=== PATIENT | female | born 1995 | race Caucasian/White ===

== ENCOUNTER 2024-03-10 07:40 | Outpatient (REF) | payer BC, SELFPAY ==
--- NOTE | ~2024-03-10 | US_ITS ---
EXAMINATION: US RENAL WITH DOPPLER CLINICAL INFORMATION: Epigastric pain. MALS. COMPARISON: None available. TECHNIQUE: Ultrasound along with color Doppler imaging and spectral analysis was performed of the abdominal aorta and mesenteric arteries.. FINDINGS: Submitted for interpretation on March 18, 2024. Abdominal aorta: Normal patency. Triphasic waveforms. Peak systolic velocity 118 cm/s and at the level of superior mesenteric artery. Superior mesenteric artery: Peak systolic velocity at the proximal, mid and distal segments as follow up: 210 cm/s, 249 cm/s and 191 cm/s. Mesenteric aortic ratio: 2.3. Celiac trunk: Peak systolic velocities as follow up: Inspiration supine: 268 cm/s. Inspiration erect: 273 cm/s. Expiration supine: 299 cm/s. Expiration erect: 267 cm/s. Inferior mesenteric artery is patent with a peak systolic velocity 89 cm/s. Splenic artery is patent with a peak systolic velocity: 335 cm/s. Hepatic artery is patent with a peak systolic velocity: 159 cm/s. US/US SMA IMPRESSION: No stenosis, superior mesenteric artery. 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 Electronically signed by: Ravi Andujar MD 03/18/2024 03:32 PM EST
--- OUTSIDE RECORDS SUMMARY | 2024-03-16 16:19 | XMS_ITS ---
Author Name [facility] Organization Unknown Results Test Name/Text Value Interpretation Date Range Source Zonisamide SerPl-mCnc 18.2mcg/mL Normal [id number] 10 - 40 [facility] Calcium SerPl-mCnc 8.3mg/dL Below low normal [id number] 8 .7 - 10.5 [facility] BUN SerPl-mCnc 3mg/dL Below low normal [id number] 8 - 2 1 [facility] Creat SerPl-mCnc 0.7mg/dL Normal [id number] 0.4 - 1.1 [facility] GFR/BSA.pred SerPlBld HCY-WWQ-TsMEtr 90 Normal [id number] 59 - [facility] Chloride SerPl-sCnc 111mmol/L Above high normal [id number] 98 - 107 [facility] BUN/Creat SerPl 4Ratio Below low normal [id number] 10 - 25 [facility] CO2 SerPl-sCnc 23mmol/L Normal [id number] 22 - 33 HH CCT Anion Gap Bld-sCnc 6 Normal [id number] 4 - 16 [facility] Potassium SerPl-sCnc 3.7mmol/L Normal [id number] 3.4 - 5.3 [facility] Glucose SerPl-mCnc 89mg/dL Normal [id number] 65 - 99 [facility] Sodium SerPl-sCnc 140mmol/L Normal [id number] 136 - 145 [facility] Neutrophils num Bld Auto 1.83Thou/uL Below low normal [id number] 2 - 7.5 [facility] Monocytes num Bld Auto 0.58Thou/uL Normal [id number] 0.2 - 1.5 [facility] Eosinophil num Bld Auto 0.12Thou/uL Normal [id number] 0 - 0.7 [facility] WBC num Bld Auto 5.5Thou/uL Normal [id number] 4 - 11 [facility] MCHC RBC Auto-mCnc 33.1g/dL Normal [id number] 30 - 36 [facility] Monocytes/leuk NFr Bld Auto 10.5% Normal [id number] H[facility] Hct VFr Bld Auto 35.6% Normal [id number] 35 - 47 [facility] RBC num Bld Auto 3.84Mil/uL Below low normal [id number] 4 - 5.4 [facility] RDW RBC Auto-Rto 11.7% Normal [id number] 11.5 - 14. 5 [facility] PMV Bld Auto 10.9fL Normal [id number] 7.5 - 12.[address] Eosinophil/leuk NFr Bld Auto 2.2% Normal [id number] H[facility]CT MCH RBC Qn Auto 30.7pg Normal [id number] 26 - 34 H [facility] Basophils/leuk NFr Bld Auto 1.1% Normal [id number] [facility] Basophils num Bld Auto 0.06Thou/uL Normal [id number] 0 - 0.2 [facility] Platelet num Bld Auto 218Thou/uL Normal [id number] 150 - 450 [facility] Neutrophils/leuk NFr Bld Auto 32.9% Normal [id number] H[facility]CT MCV RBC Auto 93fL Normal [id number] 80 - 100 [facility] T Lymphocytes/leuk NFr Bld Auto 53.1% Normal [id number] H[facility]CT Lymphocytes num Bld Auto 2.94Thou/uL Normal [id number] 1.5 - 4.5 H[facility]CT Imm Granulocytes/leuk NFr Bld Auto 0.2% Normal [id number] [facility] Hgb Bld-mCnc 11.8g/dL Normal [id number] 11.7 - 15.7 HH CCT Imm Granulocytes num Bld Auto 0.01Thou/uL Normal [id number] 0 - 0.1 [facility] Prolactin SerPl-mCnc 88.3ng/mL Above high normal 18149967590 7 4.8 - 23.3 H[facility]CT POC Glucose 118mg/dL Above high normal [id number] 65 - 99 [facility]CT Lactate SerPl-sCnc 0.9mmol/L Normal [id number] 0.5 - 1. 9 [facility] RBC num Bld Auto 4.03Mil/uL Normal [id number] 4 - 5.4 [facility]CT RDW RBC Auto-Rto 11.4% Below low normal [id number] 11. 5 - 14.5 [facility]CT PMV Bld Auto 10.7fL Normal [id number] 7.5 - 12.[address] MCH RBC Qn Auto 31.3pg Normal [id number] 26 - 34 H HCCT WBC num Bld Auto 6Thou/uL Normal [id number] 4 - 11 [facility] Platelet num Bld Auto 229Thou/uL Normal [id number] 150 - 450 [facility]CT MCHC RBC Auto-mCnc 33.8g/dL Normal [id number] 30 - 36 [facility]CT Hct VFr Bld Auto 37.3% Normal [id number] 35 - 47 H[facility]CT MCV RBC Auto 93fL Normal [id number] 80 - 100 [facility] T Hgb Bld-mCnc 12.6g/dL Normal [id number] 11.7 - 15.7 HH CCT Prolactin SerPl-mCnc 45.6ng/mL Above high normal [id number] 7 4.8 - 23.3 [facility]CT POC Glucose 153mg/dL Above high normal [id number] 65 - 99 [facility]CT AST SerPl-cCnc 14U/L Normal [id number] 10 - 50 HH CCT ALP SerPl-cCnc 32U/L Normal [id number] 32 - 122 HH CCT ALT SerPl-cCnc 7U/L Below low normal [id number] 10 - 50 [facility]CT Globulin Ser Calc-mCnc 2.4g/dL Normal [id number] 1.5 - 3.9 H[facility]CT Bilirub Direct SerPl-mCnc 0.2mg/dL Normal [id number] 0 - 0.2 [facility] Albumin/Glob SerPl 1.6Ratio Normal [id number] 1 - 1.8 [facility]CT Albumin SerPl-mCnc 3.9g/dL Normal [id number] 3.5 - 5 [facility] Prot SerPl-mCnc 6.3g/dL Normal [id number] 6.3 - 8.3 H HCCT Bilirub SerPl-mCnc 0.4mg/dL Normal [id number] 0.2 - 1 [facility] Lipase SerPl-cCnc 21U/L Normal [id number] 13 - 60 [facility] Calcium SerPl-mCnc 9mg/dL Normal [id number] 8.7 - 10 .5 [facility]CT BUN SerPl-mCnc 8mg/dL Normal [id number] 8 - 21 HH CCT Creat SerPl-mCnc 0.8mg/dL Normal [id number] 0.4 - 1.1 H[facility]CT GFR/BSA.pred SerPlBld HAC-ATY-LoIEsr 90 Normal [id number] 59 - H[facility]CT Chloride SerPl-sCnc 111mmol/L Above high normal [id number] 98 - 107 [facility]CT BUN/Creat SerPl 10Ratio Normal [id number] 10 - 25 H HCCT CO2 SerPl-sCnc 22mmol/L Normal 22 - 33 HH CCT Anion Gap Bld-sCnc 8 Normal [id number] 4 - 16 [facility]CT Potassium SerPl-sCnc 3.8mmol/L Normal 3.4 - 5.3 [facility]CT Glucose SerPl-mCnc 84mg/dL Normal 65 - 99 [facility]CT Sodium SerPl-sCnc 141mmol/L Normal [id number] 136 - 145 [facility]CT Neutrophils num Bld Auto 2.4Thou/uL Normal [id number] 2 - 7.5 [facility]CT Monocytes num Bld Auto 0.56Thou/uL Normal [id number] 0.2 - 1.5 [facility]CT Eosinophil num Bld Auto 0.1Thou/uL Normal [id number] 0 - 0.7 [facility]CT WBC num Bld Auto 5.5Thou/uL Normal [id number] 4 - 11 [facility]CT MCHC RBC Auto-mCnc 33g/dL Normal [id number] 30 - 36 [facility]CT Monocytes/leuk NFr Bld Auto 10.2% Normal [id number] HHCCT Hct VFr Bld Auto 38.8% Normal 35 - 47 H[facility]CT RBC num Bld Auto 4.14Mil/uL Normal [id number] 4 - 5.4 [facility]CT RDW RBC Auto-Rto 11.9% Normal [id number] 11.5 - 14. 5 [facility]CT PMV Bld Auto 11.2fL Normal [id number] 7.5 - 12.[address] Eosinophil/leuk NFr Bld Auto 1.8% Normal [id number] H[facility]CT MCH RBC Qn Auto 30.9pg Normal [id number] 26 - 34 H HCCT Basophils/leuk NFr Bld Auto 0.9% Normal [id number] [facility]CT Basophils num Bld Auto 0.05Thou/uL Normal [id number] 0 - 0.2 [facility] Platelet num Bld Auto 232Thou/uL Normal [id number] 150 - 450 [facility]CT Neutrophils/leuk NFr Bld Auto 43.9% Normal [id number] H[facility]CT MCV RBC Auto 94fL Normal [id number] 80 - 100 [facility] T Lymphocytes/leuk NFr Bld Auto 43% Normal [id number] H[facility]CT Lymphocytes num Bld Auto 2.35Thou/uL Normal [id number] 1.5 - 4.5 [facility]CT Imm Granulocytes/leuk NFr Bld Auto 0.2% Normal [id number] [facility]CT Hgb Bld-mCnc 12.8g/dL Normal [id number] 11.7 - 15.7 HH CCT Imm Granulocytes num Bld Auto 0.01Thou/uL Normal [id number] 0 - 0.1 [facility] RBC num/area UrnS HPF 3perhpf Normal [id number] 0 - 4 [facility]CT WBC num/area UrnS HPF 2perhpf Normal [id number] 0 - 4 [facility] Amorph Sed UrnS Ql Micro Normal [id number] H[facility]CT Squamous num/area UrnS HPF 3PERHPF Normal [id number] H[facility]CT Ketones Ur Strip-nc Normal [id number] - [facility]CT Prot Ur Strip-nc Normal [id number] - [facility]CT Leukocyte esterase Ur Ql Strip Abnormal [id number] - [facility] Color Ur Normal [id number] HHCCT pH Ur Strip 7 Normal [id number] 5 - 8 [facility]CT Sp Gr Ur Strip 1.015 Normal [id number] 1.003 - 1.03 [facility]CT Nitrite Ur Ql Strip Normal [id number] - [facility]CT Glucose Ur Strip-nc Normal [id number] 0 - 99 [facility]CT Hgb Ur Ql Strip Normal [id number] - H HCCT Bilirub Ur Strip-mCnc Normal [id number] - HHCCT Clarity Ur Normal [id number] H[facility]CT AST SerPl-cCnc 11U/L Normal [id number] 10 - 50 HH CCT ALT SerPl-cCnc 7U/L Below low normal [id number] 10 - 50 [facility]CT Creat SerPl-mCnc 0.8mg/dL Normal [id number] 0.4 - 1.1 [facility]CT Globulin Ser Calc-mCnc 2.4g/dL Normal [id number] 1.5 - 3.9 [facility]CT CO2 SerPl-sCnc 20mmol/L Below low normal [id number] 22 - 33 [facility] Albumin/Glob SerPl 1.7Ratio Normal [id number] 1 - 1.8 [facility]CT Anion Gap Bld-sCnc 12 Normal [id number] 4 - 16 [facility]CT Potassium SerPl-sCnc 3.9mmol/L Normal [id number] 3.4 - 5.3 H[facility]CT Bilirub SerPl-mCnc 0.3mg/dL Normal [id number] 0.2 - 1 [facility]CT Calcium SerPl-mCnc 8.5mg/dL Below low normal [id number] 8 .7 - 10.5 [facility]CT BUN SerPl-mCnc 13mg/dL Normal [id number] 8 - 21 HH CCT ALP SerPl-cCnc 39U/L Normal [id number] 32 - 122 HH CCT GFR/BSA.pred SerPlBld GOK-HAA-PaHAjp 90 Normal 59 - HHCCT Chloride SerPl-sCnc 107mmol/L Normal [id number] 98 - 10 7 [facility]CT BUN/Creat SerPl 16Ratio Normal [id number] 10 - 25 H HCCT Albumin SerPl-mCnc 4g/dL Normal [id number] 3.5 - 5 [facility]CT Prot SerPl-mCnc 6.4g/dL Normal [id number] 6.3 - 8.3 H HCCT Glucose SerPl-mCnc 89mg/dL Normal [id number] 65 - 99 [facility]CT Sodium SerPl-sCnc 139mmol/L Normal [id number] 136 - 145 [facility]CT Lipase SerPl-cCnc 61U/L Above high normal [id number] 1 3 - 60 [facility] Neutrophils num Bld Auto 3.78Thou/uL Normal [id number] 2 - 7.5 H[facility]CT Monocytes num Bld Auto 0.54Thou/uL Normal [id number] 0.2 - 1.5 H[facility]CT Eosinophil num Bld Auto 0.11Thou/uL Normal [id number] 0 - 0.7 H[facility]CT WBC num Bld Auto 7.9Thou/uL Normal [id number] 4 - 11 [facility]CT MCHC RBC Auto-mCnc 33.2g/dL Normal [id number] 30 - 36 [facility]CT Monocytes/leuk NFr Bld Auto 6.9% Normal [id number] HHCCT Hct VFr Bld Auto 39.5% Normal [id number] 35 - 47 H[facility]CT RBC num Bld Auto 4.22Mil/uL Normal [id number] 4 - 5.4 H[facility]CT RDW RBC Auto-Rto 11.9% Normal [id number] 11.5 - 14. 5 HHCCT PMV Bld Auto 11.6fL Normal [id number] 7.5 - 12.[address] Eosinophil/leuk NFr Bld Auto 1.4% Normal [id number] HHCCT MCH RBC Qn Auto 31pg Normal [id number] 26 - 34 H HCCT Basophils/leuk NFr Bld Auto 0.6% Normal [id number] H[facility]CT Basophils num Bld Auto 0.05Thou/uL Normal [id number] 0 - 0.2 [facility] Platelet num Bld Auto 260Thou/uL Normal [id number] 150 - 450 [facility] Neutrophils/leuk NFr Bld Auto 48.1% Normal [id number] H[facility]CT MCV RBC Auto 94fL Normal [id number] 80 - 100 [facility] T Lymphocytes/leuk NFr Bld Auto 42.9% Normal [id number] H[facility]CT Lymphocytes num Bld Auto 3.38Thou/uL Normal [id number] 1.5 - 4.5 H[facility]CT Imm Granulocytes/leuk NFr Bld Auto 0.1% Normal [id number] [facility]CT Hgb Bld-mCnc 13.1g/dL Normal 11.7 - 15.7 HH CCT Imm Granulocytes num Bld Auto 0.01Thou/uL Normal [id number] 0 - 0.1 [facility] AST/ALT SerPl-cRto Normal [id number] [facility] Glucose SerPl-mCnc 78mg/dL Normal [id number] 70 - 100 [facility] AST SerPl w P-5'-P-cCnc 17U/L Normal 10 - 35 [facility] Calcium SerPl-mCnc 9.2mg/dL Normal [id number] 8.8 - 10 .2 [facility] ALT SerPl w/o P-5'-P-cCnc 5U/L Below low normal [id number] 10 - 35 [facility] Sodium SerPl-sCnc 141mmol/L Normal 136 - 144 [facility] BUN SerPl-mCnc 11mg/dL Normal 6 - 20 [facility] ALP SerPl-cCnc 39U/L Normal [id number] 9 - 122 [facility] Globulin Plas-mCnc 2.5g/dL Normal [id number] 2 - 3.9 [facility] HCO3 SerPl-sCnc 22mmol/L Normal 20 - 30 [facility] Creat SerPl-mCnc 0.89mg/dL Normal [id number] 0.4 - 1.3 [facility] Anion Gap3 SerPl-sCnc 11 Normal [id number] 7 - 17 [facility] BUN/Creat SerPl 12.4 Normal [id number] 8 - 23 [facility] Albumin SerPl BCG-mCnc 4.5g/dL Normal [id number] 3.6 - 5.1 [facility] Bilirub SerPl-mCnc 0.2mg/dL Normal - [facility] Chloride SerPl-sCnc 108mmol/L Above high normal [id number] 98 - 107 [facility] Albumin/Glob SerPl 1.8 Normal [id number] 1 - 2.2 [facility] Potassium SerPl-sCnc 3.8mmol/L Normal 3.3 - 5.3 [facility] GFR/BSA.pred SerPlBld AKP-GBN-AsTUkh 60mL/min/1.73 m2 Normal - [facility] Prot SerPl-mCnc 7g/dL Normal 5.9 - 8.3 [facility]
== END 2024-03-10 07:41 | disposition home or self-care (01) ==
LOC: HO.US 07:40
PROVIDERS: Visit Provider Internal Medicine Gastroenterology
DX: R10.13 Epigastric pain (principal)
CPT/HCPCS: 93976

== ENCOUNTER → 2024-03-10 07:46 | Outpatient (BNV) | payer BC, SELFPAY | PROVIDERS: Visit Provider Radiology Diagnostic Radiology | DX: I77.4 Celiac artery compression syndrome (principal) | CPT/HCPCS: 93976 ==